=== PATIENT | female | born 1965 | race Caucasian/White ===

== ENCOUNTER 2016-12-17 14:32 | Emergency (ER) | payer OTHER, MEDICARE ==
[~2016-12-17 14:32] MED LIST: ACTONEL35 MG PO; BUT/APAP/CA1 OR; PREV30 PO; URISPAS100 MG OR; ZANTAC150 MG PO; ZOMIG ZMT5 MG PO; ZYRTEC ALLGY10 MG PO
== END 2016-12-17 16:20 | disposition home or self-care (01) ==
LOC: ER 14:32
DX: S16.1XXA Strain of muscle, fascia and tendon at neck level, initial encounter (principal); S46.911A Strain of unspecified muscle, fascia and tendon at shoulder and upper arm level, right arm, initial encounter; Z88.5 Allergy status to narcotic agent; Z88.8 Allergy status to other drugs, medicaments and biological substances; Z79.899 Other long term (current) drug therapy; V49.40XA Driver injured in collision with unspecified motor vehicles in traffic accident, initial encounter
CPT/HCPCS: 72100; 72125; 73030-RT; 99284